=== PATIENT | female | born 1940 | race Caucasian/White ===

== ENCOUNTER → 2018-09-20 | Outpatient (CLI) | payer MEDICARE | LOC: M.ULTRA 15:39 | DX: I73.9 Peripheral vascular disease, unspecified (principal); M79.661 Pain in right lower leg; R25.2 Cramp and spasm; Z88.1 Allergy status to other antibiotic agents; Z88.8 Allergy status to other drugs, medicaments and biological substances; Z88.0 Allergy status to penicillin; Z88.2 Allergy status to sulfonamides; Z91.012 Allergy to eggs; Z91.041 Radiographic dye allergy status ==

== ENCOUNTER → 2018-12-23 | Outpatient (CLI) | payer MEDICARE | LOC: M.ULTRA 10:16 | DX: N80.9 Endometriosis, unspecified (principal); Z88.1 Allergy status to other antibiotic agents; Z88.0 Allergy status to penicillin; Z88.2 Allergy status to sulfonamides; Z90.710 Acquired absence of both cervix and uterus ==

== ENCOUNTER → 2020-03-19 | Outpatient (CLI) | payer MEDICARE | LOC: M.MRI 14:54 | PROVIDERS: ATTEND Internal Medicine | DX: R90.82 White matter disease, unspecified (principal) ==